=== PATIENT | male | born 1960 | race Caucasian/White ===

== ENCOUNTER 2018-09-17 12:46 | Emergency (ER) | payer SELFPAY ==
[~2018-09-17] VITALS: Ht 175.3 cm; Wt 80.0 kg
[2018-09-17] MEDS ORDERED: OXYCODONE HCL/ACETAMINOPHEN 5/325MG TABLET PO ONE (13:30)
[2018-09-17 13:54] VITALS: BP 147/78
== END 2018-09-17 15:00 | disposition left against medical advice (07) ==
LOC: ER 14:34
DX: S90.812A Abrasion, left foot, initial encounter (principal); I10 Essential (primary) hypertension; W22.8XXA Striking against or struck by other objects, initial encounter; Y93.89 Activity, other specified; Y92.89 Other specified places as the place of occurrence of the external cause; Y99.8 Other external cause status
CPT/HCPCS: 99283

== ENCOUNTER 2019-08-04 16:04 | Emergency (ER) | payer MEDICAID ==
[2019-08-17] MEDS ORDERED: HYDROCHLOROTHIAZIDE PO (00:56)
[2019-08-17] MEDS ORDERED: PRAVASTATIN PO (00:57)
[2019-08-17] MEDS ORDERED: HYDROCHLOROTHIAZIDE (00:58)
== END 2019-08-04 17:05 | disposition left against medical advice (07) ==
LOC: ER 16:04
DX: Z53.21 Procedure and treatment not carried out due to patient leaving prior to being seen by health care provider (principal)

== ENCOUNTER 2019-08-04 16:58 | Emergency (ER) | payer SELFPAY ==
[~2019-08-04] VITALS: Ht 165.1 cm; Wt 72.0 kg
[2019-08-04 17:18] VITALS: BP 114/68
[2019-08-17] MEDS ORDERED: HYDROCHLOROTHIAZIDE PO (00:56)
[2019-08-17] MEDS ORDERED: PRAVASTATIN PO (00:57)
[2019-08-17] MEDS ORDERED: HYDROCHLOROTHIAZIDE (00:58)
== END 2019-08-05 09:51 | disposition left against medical advice (07) ==
LOC: ER 16:58
DX: Z53.21 Procedure and treatment not carried out due to patient leaving prior to being seen by health care provider (principal)

== ENCOUNTER 2019-08-05 13:33 | Emergency (ER) | payer SELFPAY ==
[~2019-08-05] VITALS: Ht 167.6 cm; Wt 85.0 kg
[2019-08-05 15:02] LABS: CHLORIDE 113 mEq/L (98-107)
[2019-08-05 15:05] LABS: BASOPHILS % 3.7 % (0.0-2.0); EOSINOPHILS % 1.8 % (0.0-5.0); HEMATOCRIT. 36.2 % (42.0-52.0); HEMOGLOBIN. 12.3 g/dL (14.0-18.0); LYMPHOCYTES % 26.7 % (20.0-50.0); MEAN CORPUSCULAR HEMOGLOBIN 28.2 pg (28.0-32.0); MEAN PLATELET VOLUME 8.5 fl (7.4-10.4); MONOCYTES % 6.3 % (2.0-8.0); NEUTROPHILS % 61.5 % (40.0-76.0); PLATELET 269 x1000/uL (130-400); RED BLOOD CELL COUNT 4.35 mill/uL (4.7-6.1); RED CELL DISTRIBUTION WIDTH 19.8 % (11.6-14.6)
[2019-08-05 15:37] LABS: ETHANOL BLOOD 386 mg/dL
[2019-08-05 16:00] VITALS: BP 105/72
[2019-08-05] MEDS ORDERED: CHLORDIAZEPOXIDE 25MG CAPSULE PO ONE (16:15)
[2019-08-05] MEDS ORDERED: POTASSIUM CHLORIDE 20MEQ TABLET SR PO ONE (16:15)
[2019-08-17] MEDS ORDERED: HYDROCHLOROTHIAZIDE PO (00:56)
[2019-08-17] MEDS ORDERED: PRAVASTATIN PO (00:57)
[2019-08-17] MEDS ORDERED: HYDROCHLOROTHIAZIDE (00:58)
== END 2019-08-05 18:30 | disposition left against medical advice (07) ==
LOC: ER 13:33
DX: T51.0X1A Toxic effect of ethanol, accidental (unintentional), initial encounter (principal); E87.6 Hypokalemia; I10 Essential (primary) hypertension; F10.229 Alcohol dependence with intoxication, unspecified; Y90.8 Blood alcohol level of 240 mg/100 ml or more; Y92.89 Other specified places as the place of occurrence of the external cause
CPT/HCPCS: 36415; 80307; 80320; 80329; 99283; G0480

== ENCOUNTER 2019-08-07 11:00 | Emergency (ER) | payer MEDICAID ==
[~2019-08-07] VITALS: Ht 172.7 cm; Wt 85.0 kg
[2019-08-07] MEDS ORDERED: ONDANSETRON HCL 4MG/2ML INJ IV ONE (14:15)
[2019-08-07] MEDS ORDERED: FOLIC ACID 1 MG, THIAMINE HCL 100 MG, MVI, ADULT NO.1 10 ML in DEXTROSE 5% WATER 1,000 ML IV ONE ×4 (14:15)
[2019-08-07 19:00] VITALS: BP 121/65
[2019-08-17] MEDS ORDERED: HYDROCHLOROTHIAZIDE PO (00:56)
[2019-08-17] MEDS ORDERED: PRAVASTATIN PO (00:57)
[2019-08-17] MEDS ORDERED: HYDROCHLOROTHIAZIDE (00:58)
== END 2019-08-07 21:10 | disposition left against medical advice (07) ==
LOC: ER 11:00
DX: T51.0X1A Toxic effect of ethanol, accidental (unintentional), initial encounter (principal); G92 Toxic encephalopathy; F10.129 Alcohol abuse with intoxication, unspecified; Y90.8 Blood alcohol level of 240 mg/100 ml or more; Y92.89 Other specified places as the place of occurrence of the external cause
CPT/HCPCS: 36415; 70450; 80320; 96365; 96366; 96375; 99284; J3411; J3490; J7070; Z7610; G0480

== ENCOUNTER 2019-08-14 13:44 | Emergency (ER) | payer MEDICAID ==
[~2019-08-14] VITALS: Ht 170.2 cm; Wt 80.0 kg
[2019-08-14 13:46] VITALS: BP 104/61
[2019-08-17] MEDS ORDERED: HYDROCHLOROTHIAZIDE PO (00:56)
[2019-08-17] MEDS ORDERED: PRAVASTATIN PO (00:57)
[2019-08-17] MEDS ORDERED: HYDROCHLOROTHIAZIDE (00:58)
== END 2019-08-14 14:24 | disposition left against medical advice (07) ==
LOC: ER 13:44
DX: Z53.21 Procedure and treatment not carried out due to patient leaving prior to being seen by health care provider (principal)

== ENCOUNTER 2019-08-15 16:03 | Emergency (ER) | payer MEDICAID ==
[~2019-08-15] VITALS: Ht 170.2 cm; Wt 73.0 kg
[2019-08-15 16:38] VITALS: BP 115/69
[2019-08-17] MEDS ORDERED: HYDROCHLOROTHIAZIDE PO (00:56)
[2019-08-17] MEDS ORDERED: PRAVASTATIN PO (00:57)
[2019-08-17] MEDS ORDERED: HYDROCHLOROTHIAZIDE (00:58)
== END 2019-08-15 17:08 | disposition left against medical advice (07) ==
LOC: ER 16:03
DX: F10.229 Alcohol dependence with intoxication, unspecified (principal); I10 Essential (primary) hypertension; Y90.9 Presence of alcohol in blood, level not specified
CPT/HCPCS: 99283

== ENCOUNTER 2019-11-24 13:39 | Emergency (ER) | payer MEDICAID ==
[~2019-11-24] VITALS: Ht 175.3 cm; Wt 80.0 kg
[~2019-11-24 13:39] MED LIST: HYDROCHLOROTHIAZIDE; PRAVASTATIN PO
[2019-11-24] MEDS ORDERED: SODIUM CHLORIDE 0.9% 1,000 ML IV ONE (14:41)
[2019-11-24] MEDS ORDERED: HALOPERIDOL LACTATE 5MG/ML VIAL IM STA (14:41)
[2019-11-24 17:00] LABS: BASOPHILS % 0.6 % (0.0-2.0); EOSINOPHILS % 1.5 % (0.0-5.0); HEMATOCRIT. 47.3 % (42.0-52.0); LYMPHOCYTES % 38.7 % (20.0-50.0); MEAN CORPUSCULAR HEMOGLOBIN 29.8 pg (28.0-32.0); MEAN CORPUSCULAR VOLUME 88.1 fL (80.0-94.0); MEAN PLATELET VOLUME 8.3 fl (7.4-10.4); MONOCYTES % 5.9 % (2.0-8.0); NEUTROPHILS % 53.3 % (40.0-76.0); PLATELET 190 x1000/uL (130-400); RED BLOOD CELL COUNT 5.36 mill/uL (4.7-6.1); RED CELL DISTRIBUTION WIDTH 14.1 % (11.6-14.6)
[2019-11-24 17:05] LABS: CHLORIDE 109 mEq/L (98-107)
[2019-11-24 17:32] LABS: ETHANOL BLOOD 379 mg/dL
[2019-11-24 21:59] LABS: CLARITY URINE CLEAR (CLEAR); COLOR URINE YELLOW (YELLOW); KETONES URINE NEGATIVE (NEGATIVE); LEUKOCYTE ESTERASE URINE NEGATIVE (NEGATIVE); NITRITE URINE NEGATIVE (NEGATIVE); OCCULT BLOOD URINE NEGATIVE (NEGATIVE); PH URINE 6.5 (4.5-8.0); PROTEIN URINE NEGATIVE (NEGATIVE); SPECIFIC GRAVITY URINE 1.009 (1.005-1.030); UROBILINOGEN URINE 0.2 E.U./dL (0.2-1.0)
[2019-11-24 22:23] LABS: *AMPHETAMINES SCREEN URINE NEGATIVE (NEGATIVE); *BARBITURATES SCREEN URINE NEGATIVE (NEGATIVE); CANNABINOID URINE SCREEN NEGATIVE (NEGATIVE)
[2019-11-24 22:24] LABS: *BENZODIAZEPINES SCREEN URINE NEGATIVE (NEGATIVE); *COCAINE SCREEN URINE NEGATIVE (NEGATIVE); METHADONE URINE SCREEN NEGATIVE (NEGATIVE); OPIATES URINE SCREEN NEGATIVE (NEGATIVE); PHENCYCLIDINE URINE SCREEN NEGATIVE (NEGATIVE)
[2019-11-25 10:00] VITALS: BP 157/85
== END 2019-11-25 10:46 | disposition home or self-care (01) ==
LOC: ER 13:39
DX: F10.20 Alcohol dependence, uncomplicated (principal); Y90.8 Blood alcohol level of 240 mg/100 ml or more; Z98.890 Other specified postprocedural states
CPT/HCPCS: 36415; 70450; 71045; 80053; 80305; 80307; 80320; 80329; 81003; 85025; 93005; 96372; 99284; J1630; J7030; Z7610; G0480

== ENCOUNTER 2020-02-10 21:12 | Emergency (ER) | payer MEDICAID ==
[~2020-02-10] VITALS: Ht 170.2 cm; Wt 88.0 kg
[2020-02-10 23:27] LABS: CHLORIDE 107 mEq/L (98-107)
[2020-02-10] MEDS ORDERED: DEXTROSE 50% WATER 50ML SYRINGE IV ONE ×2 (23:44→23:45)
[2020-02-10 23:51] LABS: BASOPHILS % 0.2 % (0.0-2.0); EOSINOPHILS % 0.2 % (0.0-5.0); HEMATOCRIT. 50.9 % (42.0-52.0); HEMOGLOBIN. 17.1 g/dL (14.0-18.0); LYMPHOCYTES % 19.8 % (20.0-50.0); MEAN CORPUSCULAR HEMOGLOBIN 29.6 pg (28.0-32.0); MEAN CORPUSCULAR VOLUME 88.3 fL (80.0-94.0); MEAN PLATELET VOLUME 7.5 fl (7.4-10.4); MONOCYTES % 3.8 % (2.0-8.0); PLATELET 211 x1000/uL (130-400); RED BLOOD CELL COUNT 5.77 mill/uL (4.7-6.1)
[2020-02-10 23:59] LABS: ETHANOL BLOOD 432 mg/dL
[2020-02-11 01:05] LABS: CLARITY URINE CLEAR (CLEAR); COLOR URINE YELLOW (YELLOW); KETONES URINE 1+ (NEGATIVE); LEUKOCYTE ESTERASE URINE NEGATIVE (NEGATIVE); NITRITE URINE NEGATIVE (NEGATIVE); OCCULT BLOOD URINE TRACE (NEGATIVE); PH URINE 5.5 (4.5-8.0); PROTEIN URINE TRACE (NEGATIVE); SPECIFIC GRAVITY URINE 1.025 (1.005-1.030); UROBILINOGEN URINE 0.2 E.U./dL (0.2-1.0)
[2020-02-11 01:31] LABS: *AMPHETAMINES SCREEN URINE NEGATIVE (NEGATIVE)
[2020-02-11 01:33] LABS: *BARBITURATES SCREEN URINE NEGATIVE (NEGATIVE); *BENZODIAZEPINES SCREEN URINE NEGATIVE (NEGATIVE); *COCAINE SCREEN URINE NEGATIVE (NEGATIVE); CANNABINOID URINE SCREEN NEGATIVE (NEGATIVE); METHADONE URINE SCREEN NEGATIVE (NEGATIVE); OPIATES URINE SCREEN NEGATIVE (NEGATIVE); PHENCYCLIDINE URINE SCREEN NEGATIVE (NEGATIVE)
[2020-02-11] MEDS ORDERED: SODIUM CHLORIDE 0.9% 1,000 ML IV ONE (04:23)
[2020-02-11] MEDS ORDERED: ACETAMINOPHEN 325MG TABLET PO ONE (06:15)
[2020-02-11] MEDS ORDERED: IBUPROFEN 600MG TABLET PO STA (07:36)
[2020-02-11 08:21] VITALS: BP 125/76
== END 2020-02-11 08:24 | disposition home or self-care (01) ==
LOC: ER 21:12
DX: F10.129 Alcohol abuse with intoxication, unspecified (principal); Y90.8 Blood alcohol level of 240 mg/100 ml or more; R45.851 Suicidal ideations
CPT/HCPCS: 36415; 80053; 80305; 80307; 80320; 80329; 81003; 82962; 85025; 96361; 96374; 99285; J7030; G0480

== ENCOUNTER 2020-02-20 00:21 | Emergency (ER) | payer MEDICAID ==
[~2020-02-20] VITALS: Ht 175.3 cm; Wt 77.0 kg
[2020-02-20] MEDS ORDERED: ACETAMINOPHEN 325MG TABLET PO ONE (02:45)
[2020-02-20 04:18] VITALS: BP 150/81
== END 2020-02-20 05:33 | disposition home or self-care (01) ==
LOC: EDUNIT# 00:21 → ER 00:34
DX: S00.31XA Abrasion of nose, initial encounter (principal); F10.129 Alcohol abuse with intoxication, unspecified; Z79.899 Other long term (current) drug therapy; X58.XXXA Exposure to other specified factors, initial encounter; Y90.9 Presence of alcohol in blood, level not specified; Y93.89 Activity, other specified; Y92.89 Other specified places as the place of occurrence of the external cause; Y99.8 Other external cause status
CPT/HCPCS: 99284

== ENCOUNTER 2020-02-21 03:24 | Emergency (ER) | payer MEDICAID, OTHER ==
[~2020-02-21] VITALS: Ht 162.6 cm; Wt 79.0 kg
[2020-02-21 03:26] VITALS: BP 125/76
== END 2020-02-21 06:08 | disposition left against medical advice (07) ==
LOC: ER 03:24
DX: F10.129 Alcohol abuse with intoxication, unspecified (principal); Y90.9 Presence of alcohol in blood, level not specified; R03.0 Elevated blood-pressure reading, without diagnosis of hypertension
CPT/HCPCS: 99283